=== PATIENT | male | born 1985 | race African-American/Black ===

== ENCOUNTER 2018-07-20 06:56 | Emergency (ER) | payer SELFPAY | END 2018-07-20 07:45 | disposition home or self-care (01) | LOC: ERS 06:56 | DX: L72.8 Other follicular cysts of the skin and subcutaneous tissue (principal); F17.210 Nicotine dependence, cigarettes, uncomplicated | CPT/HCPCS: 99282 ==

== ENCOUNTER 2018-12-29 16:58 | Emergency (ER) | payer SELFPAY ==
[2018-12-29] MEDS ORDERED: Ketorolac Tromethamine 30 MG/ML VIAL ONE (17:53)
== END 2018-12-29 18:04 | disposition home or self-care (01) ==
LOC: ERS 16:58
DX: K02.9 Dental caries, unspecified (principal); F17.210 Nicotine dependence, cigarettes, uncomplicated
CPT/HCPCS: 96372; 99282; J1885

== ENCOUNTER 2019-10-02 14:38 | Emergency (ER) | payer SELFPAY | END 2019-10-02 15:19 | disposition home or self-care (01) | LOC: ERS 14:38 | DX: L01.00 Impetigo, unspecified (principal); F17.210 Nicotine dependence, cigarettes, uncomplicated | CPT/HCPCS: 99282 ==

== ENCOUNTER 2022-11-19 07:56 | Emergency (ER) | payer SELFPAY ==
[2022-11-19] MEDS ORDERED: Ibuprofen 200 MG TAB ONE (08:25)
== END 2022-11-19 08:29 | disposition home or self-care (01) ==
LOC: ERS 07:56
DX: L73.9 Follicular disorder, unspecified (principal); F17.210 Nicotine dependence, cigarettes, uncomplicated
CPT/HCPCS: 99282

== ENCOUNTER 2023-02-15 09:35 | Emergency (ER) | payer SELFPAY ==
[2023-02-15] MEDS ORDERED: Bacitracin 1 PK ONE (10:52)
== END 2023-02-15 11:31 | disposition home or self-care (01) ==
LOC: ERS 09:35
DX: H60.12 Cellulitis of left external ear (principal); H60.02 Abscess of left external ear; F17.210 Nicotine dependence, cigarettes, uncomplicated; W59.01XA Bitten by nonvenomous lizards, initial encounter
CPT/HCPCS: 69000